=== PATIENT | male | born 2000 ===

== ENCOUNTER 2021-06-09 11:48 | Emergency (ER) | payer BC, MEDICAID, SELFPAY ==
--- NOTE | ~2021-06-09 | XR_ITS ---
EXAMINATION: XR ANKLE, LEFT CLINICAL INFORMATION: Ankle/foot injury COMPARISON: None TECHNIQUE: AP, lateral, and mortise views of the left ankle. FINDINGS: There is a large amount soft tissue swelling seen about the ankle, medially and laterally as well as the dorsum of the midfoot. Ankle mortise appears intact without widening of the medial joint space. There is mild spurring about the inferior most aspect of the lateral malleolus. There is slight irregularity to the dorsal aspect of the talar bone which may be related to avulsion injuries however no definite edematous change within adjacent fat is seen in the some most likely chronic in nature. XR/XR ankle LT min 3V IMPRESSION: Large amount of soft tissue swelling without definite acute fracture appreciated.
[2021-06-09 12:27] VITALS: BP 120/67; PULSE 91; RESP 17; TEMP 36.8; O2SAT 96; BMI 27.7
--- NOTE | 2021-06-09 13:50 | ED.LOWEXIN ---
HPI - Extremity Injury (Lower) General Chief Complaint: Extremity Injury, Lower Stated Complaint: ankle inj Time Seen by Provider: 06/09/21 13:50 Source: patient and family (Mother) Mode of arrival: ambulatory Limitations: no limitations History of Present Illness HPI Narrative: 21-year-old male came in for evaluation of left foot/ankle injury. Patient was playing basketball yesterday was jumping when he landed he twisted his left ankle, complaining of left ankle pain and swelling. Patient declined any other injuries. No LOC or head injury. No neck pain. Related Data Previous Rx's Medication Instructions Recorded ibuprofen 600 mg tablet 600 mg PO Q8H PRN #20 tab 06/09/21 Allergies Allergy/AdvReac Type Severity Reaction Status Date / Time No Known Allergies Allergy Unverified 05/06/20 16:49 [No Known Allergies*] Review of Systems Review of Systems: All other systems are reviewed and are negative Constitutional: Reports as per HPI and Reports no additional constitutional complaints Eyes: Reports as per HPI and Reports no additional eye complaints Reports system reviewed and no additional complaints, except as documented Cardiovascular: Reports as per HPI and Reports no additional cardiovascular complaints Respiratory: Reports as per HPI and Reports no additional respiratory complaints Gastrointestinal: Reports as per HPI and Reports no additional gastrointestinal complaints Genitourinary: Reports no additional female genitourinary complaints Musculoskeletal: Reports no additional musculoskeletal complaints Skin/Breast: Reports system reviewed and no additional complaints, except as docu Psychiatric: Reports no additional psychiatric complaints Endocrine: Reports no additional endocrine complaints Hematologic/Lymphatic: Reports no additional hematologic/lymphatic complaints Allergic/Immunologic: Reports no additional allergic/immunologic complaints Reports system reviewed and no additional complaints, except as documented and Reports Abnormal speech present Physical Exam Vital Signs: Vital Signs: Last Vital Signs Temp 98.3 F 06/09/21 12:27 Pulse 91 06/09/21 12:27 Resp 17 06/09/21 12:27 BP 120/67 06/09/21 12:27 Pulse Ox 96 06/09/21 12:27 Body Mass Index 27.7 Vital signs have been reviewed as appeared to be correct. Blood pressure normal. Heart rate normal. Respiration rate normal. Temperature normal. Oxygen saturation normal. Appearance: Alert. Oriented X3. No acute distress. Head: Normal external exam. Normocephalic. Atraumatic. No Almazan signs noted. No raccoon eyes noted Eyes: PERRLA. EOMI. Conjunctiva and sclera normal. Eyelids normal. ENT: TM's Normal. Pharynx normal. Uvula midline. Moist mucous membranes. No trismus noted. No drooling noted. No muffled voice noted. Neck: Normal inspection. Neck supple. FROM. No adenopathy. Thyroid Normal. No meningeal signs. No neck mass noted. CVS: Normal heart rate and rhythm. Heart sound normal. No murmurs noted. Pulses normal throughout. Respiratory: No respiratory distress. Painless inspiration. Breath sounds normal. No wheezes/rales/rhonchi noted. Chest nontender. No accessory muscle usage noted or decreased air movement noted. Abdomen: Soft and nontender. Bowel sounds normal in all 4 quadrants. No distention noted. No organomegaly noted. No visible injury noted. Back: No CVA tenderness. Full range of motion noted. Skin: Skin warm and dry. Normal skin color. Normal skin turgor. No rashes/lesions/lacerations noted. Extremities: Left ankle diffuse tenderness, swelling in the left ankle and left foot, no deformity, no step-off, unable to bear weight. Neuro: Oriented X 3. Cranial nerve exam: II-XII are grossly intact No motor deficit. No sensory deficit. Reflexes normal. Course Course Course Narrative: Left ankle sprain. Crutches/elevation/NSAIDs/rest. Discharge Plan Discharge Clinical Impression: Ankle sprain and strain Patient Disposition: Home, Self-Care Instructions: Ankle Sprain (ED) Prescriptions: New ibuprofen 600 mg tablet 600 mg PO Q8H PRN (Reason: pain) Qty: 20 RF: 0 Referrals: Physician,Unknown J [Primary Care Provider] - 2 days
[2021-06-09] MEDS: Ibuprofen 600 MG TABLET PO (14:17)
== END 2021-06-09 14:38 | disposition home or self-care (01) ==
LOC: HO.ED 14:40
PROVIDERS: Emergency Provider Emergency Medicine
DX: S93.402A Sprain of unspecified ligament of left ankle, initial encounter (principal); M25.572 Pain in left ankle and joints of left foot; X50.1XXA Overexertion from prolonged static or awkward postures, initial encounter; Y93.39 Activity, other involving climbing, rappelling and jumping off; Y92.310 Basketball court as the place of occurrence of the external cause; Y99.8 Other external cause status; Z79.899 Other long term (current) drug therapy
CPT/HCPCS: 73610; 99283

== ENCOUNTER 2023-09-15 12:37 | Emergency (ER) | payer MEDICAID, SELFPAY ==
[2023-09-15 12:47] VITALS: BP 117/52; PULSE 78; RESP 16; TEMP 37; BMI 32.3
--- NOTE | 2023-09-15 12:47 | ED.GENADULT ---
HPI - General Adult General Chief complaint: Urogenital-Male Stated complaint: something on private area Time Seen by Provider: 09/15/23 13:19 Source: patient and RN notes reviewed Mode of arrival: ambulatory Limitations: no limitations History of Present Illness HPI narrative: This is a 23-year-old male presenting to the emergency department for evaluation of penile lesion. Patient states that he noticed 2 days ago that he had a painless sore on the tip of his penis. He states that he is monogamous and is sexually active with his partner of 2 years. Denies any fevers, chills, rashes, dysuria, hematuria, penile discharge or drainage. Denies history of similar symptoms in the past. Denies any other complaints or concerns this time MD complaint: Penile lesion Onset (ago): day(s) Relieving factors: none Exacerbating factors: none Associated symptoms: denies other symptoms Treatments prior to arrival: none Related Data Previous Rx's Medication Instructions Recorded ibuprofen 600 mg tablet 600 mg PO Q8H PRN pain #20 tabs 06/09/21 Allergies Allergy/AdvReac Type Severity Reaction Status Date / Time No Known Allergies Allergy Verified 09/15/23 12:47 [No Known Allergies*] Review of Systems Review of Systems: Yes all other systems are reviewed and are negative PMFSH Past Medical History Attestation statement: The following information was validated with the patient. Social History Social History Smoked in Last 30 Days: No Use of substances other than those prescribed or required for medical reasons: No Advance Directives: No Advance Directives Information Provided: No Physical Exam ED Vital Signs: Vital Signs - 24 hr 09/15/23 12:47 09/15/23 16:38 Temperature 98.6 F 98 F Pulse Rate 78 64 Respiratory Rate 16 16 Blood Pressure 117/52 L 130/70 Pulse Oximetry 98 Oxygen Delivery Method Room Air Room Air BMI result Body Mass Index 32.3 General: Awake, alert, and oriented X3. No acute distress. HEENT: Normal inspection CVS: Normal heart rate and rhythm. Pulses normal. Respiratory: No respiratory distress Skin: Warm, dry, no rashes noted to exposed skin. Normal skin color. Normal skin turgor. Extremities: Normal to inspection : examination performed with generation mechanic helper (Tech) present at all time. Uncircumcised male with painless 2 mm ulceration noted at the superior aspect of the glands, no drainage or discharge. No surrounding erythema or edema Neuro: Oriented X 3. No motor deficit. No sensory deficit. Course Course Course Narrative: RME:?23 yo male w/ no significant pmhx here for evaluation of penile lesion that he noticed 3 days ago. lesion located at head of penis. states he is sexually active with new partner. Uses condoms. Denies fever, chills, N/V, abd pain, dysuria, hematuria. denies other lesion. no drainage. no pain. PE limited in triage. UA, CT/NG ordered in triage. Full HPI, ROS and PE to be performed by the primary ED provider. Medical Decision Making Medical Decision Making [facility] Narrative: This is a 23-year-old male presenting to the emergency department for evaluation of painless penile lesion x 2 days. On arrival, vital signs within normal limits. Patient is monogamous with his partner of 2 years. Examination with painless lesion noted to the inferior aspect of the glands. Findings concerning for syphilis versus herpes. Given that is painless in nature, syphilis is high on my differential. Had this evaluated by my supervising physician, Dr. Horton, who recommends getting baseline labs, testing for gonorrhea, chlamydia, syphilis and HSV. Advised to get all other STI testing performed at [facility]. Patient understands and agrees with plan. I advised patient that we will call him with any positive results. Dr. Horton recommends deferring antibiotic treatment as unclear what this lesion is. He is aware that he will have to return for injection if this is positive. Patient has no neurologic findings or rashes to suggest secondary or tertiary syphilis at this time. Advised to avoid any sexual encounters until we are sure what this lesion is. Does not appear to be infectious, therefore deferring antibiotic treatment at this time. Patient understands and agrees with plan. Patient stable for discharge Differential Diagnosis Differential Diagnoses: The differential diagnosis associated with the presentation includes Syphilis, herpes simplex, folliculitis, cellulitis Lab Data [facility] Lab Attestation statement: I reviewed the patient's lab results. No leukocytosis, stable H&H, chemistry within normal limits, urine not infectious. Gonorrhea chlamydia negative 09/15/23 16:04 09/15/23 16:04 Labs: Lab Results 09/15/23 09/15/23 Range/Units 13:12 16:04 WBC 6.4 (4.8-10.8) X10*3/uL RBC 4.87 (4.60-5.80) X10*6/uL Hgb 15.3 (14.0-18.0) g/dl Hct 44.7 (42.0-52.0) % MCV 91.8 (80.0-98.0) fL MCH 31.4 (27.0-33.0) pg MCHC 34.2 (31.0-36.0) g/dl RDW 11.3 (11.0-16.0) % Plt Count 180 (160-400) X10*3/uL MPV 11.4 (9.4-12.4) fL Immature Gran % (Auto) 0.3 (0.0-0.4) % Neut % (Auto) 73.3 H (45-73) % Lymph % (Auto) 17.4 L (20-40) % [place]ois % (Auto) 8.3 (2-11) % Eos % (Auto) 0.2 (0-4) % Baso % (Auto) 0.5 (0-2) % Lymph # (Auto) 1.1 L (1.2-4.9) X10*3/uL [place] # (Auto) 0.5 (0.1-1.2) X10*3/uL Eos # (Auto) 0.0 (0.0-0.4) X10*3/uL Baso # (Auto) 0.0 (0.0-0.2) X10*3/uL Abs Immat Gran (auto) 0.02 (0.00-0.03) X10*3/uL Absolute Neuts (auto) 4.7 (2.0-8.3) x10*3/uL Absolute Nucleated RBC 0.000 (0.0-0.012) X10*3/uL Nucleated RBC % (auto) 0.0 (0.0-0.2) /100WBC ESR 1 (0-15) MM/HR Sodium 140 (135-145) mmol/L Potassium 4.1 (3.3-5.1) mmol/L Chloride 105 (96-108) mmol/L Carbon Dioxide 25 (22-29) mmol/L Anion Gap 14 (12-20) BUN 13 (9-16) mg/dL Creatinine 1.25 (0.5-1.4) mg/dL Estim Creat Clear Calc 112.4 Estimated GFR > 60 Random Glucose 89 (60-115) mg/dL Calcium 9.8 (8.4-10.2) mg/dL Total Bilirubin 1.0 (0.0-1.0) mg/dL AST 23 (5-37) U/L ALT 26 (0-40) U/L Alkaline Phosphatase 69 (39-117) U/L C-Reactive Protein 0.27 (< or = 0.50) mg/dL Total Protein 7.7 (6.5-8.0) g/dL Albumin 4.5 (3.5-5.0) g/dL Urine Color Yellow Urine Appearance Clear Urine pH 6.0 (5.0-9.0) Ur Specific [place] 1.025 (1.005-1.025) Urine Protein Negative (Neg-Trace) mg/dL Urine Glucose (UA) Negative (Negative) mg/dL Urine Ketones Negative (Negative) mg/dL Urine Blood Negative (Negative) Urine Nitrite Negative (Negative) Ur Leukocyte Esterase Negative (Negative) T.pallidum Ab (EIA) Reactive A (Nonreactive) Chlam trachomat DNA PCR NOT DETECTED (Not Detect.) HSV Culture & Type Cancelled N.gonorrhoeae DNA (PCR) NOT DETECTED (Not Detect.) Prescription Management I considered prescription management with: Antibiotic Consider treatment with pen G however will defer until results return Discharge Plan Discharge Clinical Impression: Penile lesion Patient Disposition: Home, Self-Care Instructions: Sexually Transmitted Diseases (ED) Additional Instructions: You were seen in the emergency department due to concerns for a penile lesion. We are testing you for herpes and syphilis today. You tested negative for gonorrhea and chlamydia today. Your blood work was reassuring. We sent out your blood for further testing, we will call you with any positive results. We also will call you with any abnormal findings based on your urine collected. Until you are reevaluated by a health care provider please practice safe sex as discussed. Please also have a conversation with your sexual partners. I also advise you to obtain full panel STD testing to test for other STDs including HIV, Hepatitis B & C with your PCP or a local clinic. [facility] can help facilitate these tests. They often times have walk-in hours. If any new or worsening symptoms occur, please return for re-evaluation. Prescriptions: No Action ibuprofen 600 mg tablet 600 mg PO Q8H PRN (Reason: pain) Qty: 20 0RF Discharge Date/Time: 09/15/23 16:35
[2023-09-15 13:21] LABS: Appearance Urine Clear; Color Urine Yellow; Glucose Urine UA Negative (Negative); Leukocyte Esterase Urine Negative (Negative); Nitrite Urine Negative (Negative); Specific Gravity - Urine 1.025 (1.005-1.025); Urine Blood Negative (Negative); Urine Ketones Negative (Negative); Urine Protein Negative (Neg-Trace)
[2023-09-15 15:39] LABS: CT PCR NOT DETECTED (Not Detect.); NG PCR NOT DETECTED (Not Detect.)
[2023-09-15 16:10] LABS: MANUAL DIFF FLAG NO
[2023-09-15 16:13] LABS: Basophils Percent Auto 0.5 % (0-2); Eosinophils Percent Auto 0.2 % (0-4); Hematocrit 44.7 % (42.0-52.0); Hemoglobin 15.3 g/dl (14.0-18.0); Imm Gran Abs Auto 0.02 X10*3/uL (0.00-0.03); Imm Gran Pct Auto 0.3 % (0.0-0.4); Lymphocytes Absolute Auto 1.1 X10*3/uL (1.2-4.9); Lymphocytes Percent Auto 17.4 % (20-40); Mean Corpuscular HGB Conc 34.2 g/dl (31.0-36.0); Mean Corpuscular Hemoglobin 31.4 pg (27.0-33.0); Mean Corpuscular Volume 91.8 fL (80.0-98.0); Mean Platelet Volume 11.4 fL (9.4-12.4); Monocytes Absolute Auto 0.5 X10*3/uL (0.1-1.2); Monocytes Percent Auto 8.3 % (2-11); Neutrophils Absolute Auto 4.7 x10*3/uL (2.0-8.3); Neutrophils Percent Auto 73.3 % (45-73); Platelet Count 180 X10*3/uL (160-400); Red Blood Count 4.87 X10*6/uL (4.60-5.80); Red Cell Distribution Width 11.3 % (11.0-16.0); White Blood Count 6.4 X10*3/uL (4.8-10.8)
[2023-09-15 16:25] LABS: C Reactive Protein 0.27 mg/dL (< or = 0.50)
[2023-09-15 16:27] LABS: Alanine Aminotransferase 26 U/L (0-40); Albumin Level 4.5 g/dL (3.5-5.0); Alkaline Phosphatase 69 U/L (39-117); Anion Gap 14 (12-20); Aspartate Amino Transferase 23 U/L (5-37); Blood Urea Nitrogen 13 mg/dL (9-16); Calcium 9.8 mg/dL (8.4-10.2); Carbon Dioxide 25 mmol/L (22-29); Chloride 105 mmol/L (96-108); Creatinine Clr Calc Pharmacy 112.4; Estimated Glomerular Filt Rate > 60; Glucose Random 89 mg/dL (60-115); Potassium 4.1 mmol/L (3.3-5.1); Sodium 140 mmol/L (135-145); Total Protein 7.7 g/dL (6.5-8.0)
[2023-09-15 16:38] VITALS: BP 130/70; PULSE 64; RESP 16; TEMP 36.6; O2SAT 98
[2023-09-15 16:51] LABS: Erythrocyte Sedimentation Rate 1 MM/HR (0-15)
[2023-09-17 04:28] LABS: Syphilis Screen Reactive (Nonreactive)
[2023-09-20 15:04] LABS: RPR Quantitative Reactive 1:4 (Nonreactive); T.Pallidum Particle Agg Test Reactive (Nonreactive)
== END 2023-09-15 16:35 | disposition home or self-care (01) ==
PROVIDERS: Physician Assistant Medical; Emergency Provider Emergency Medicine
DX: A51.0 Primary genital syphilis (principal); N48.9 Disorder of penis, unspecified
CPT/HCPCS: 0353U; 36415; 80053; 81003; 85025; 85652; 86140; 86592; 86780; 87255; 99284

== ENCOUNTER 2023-09-21 13:44 | Emergency (ER) | payer MEDICAID, SELFPAY ==
[2023-09-21 14:09] VITALS: BP 122/74; PULSE 79; RESP 18; TEMP 36.8; O2SAT 97; BMI 29.9
--- NOTE | 2023-09-21 14:10 | ED.GENADULT ---
HPI - General Adult General Chief complaint: Recheck/Abnormal Lab/Rx Stated complaint: told to come in, tested positive for syphilis Time Seen by Provider: 09/21/23 14:55 Source: patient Mode of arrival: ambulatory Limitations: no limitations History of Present Illness HPI narrative: Patient is a 23 year old assigned male at with no reported medical history presenting to the emergency department today for treatment of syphilis. Patient states that he was told he tested positive for Syphilis and needed treatment. Patient denies any dizziness, lightheadedness, abdominal pain, nausea, vomiting, fever, chills, blurry vision, double vision, loss of vision, chest pain, difficulty breathing, shortness of breath, back pain, night sweats, pain with urination, increased urinary frequency, increased urinary urgency, blood in his urine or stool, syncope or a near syncopal episode, recent trauma or falls, bowel incontinence, bladder incontinence, bowel retention, bladder retention, or any other complaints at this time. Relieving factors: none Exacerbating factors: none Associated symptoms: denies other symptoms Treatments prior to arrival: none Related Data Previous Rx's Medication Instructions Recorded ibuprofen 600 mg tablet 600 mg PO Q8H PRN pain #20 tabs 06/09/21 Allergies Allergy/AdvReac Type Severity Reaction Status Date / Time No Known Allergies Allergy Verified 09/21/23 14:11 [No Known Allergies*] Review of Systems Constitutional: Constitutional: Reports no additional constitutional complaints, Denies chills, Denies fever(s) and Denies night sweats Eyes: Eyes: Reports no additional eye complaints, Denies blurry vision, Denies change in vision, Denies diplopia, Denies eye discharge, Denies loss of vision and Denies eye pain ENT: Denies dizziness Cardiovascular: Cardiovascular: Reports no additional cardiovascular complaints, Denies chest pain, Denies lightheadedness, Denies Loss of Consciousness and Denies dyspnea Respiratory: Respiratory: Reports no additional respiratory complaints and Denies dyspnea Gastrointestinal: Gastrointestinal: Reports no additional gastrointestinal complaints, Denies abdominal pain, Denies melena, Denies hematochezia, Denies change in bowel habits and Denies change in stool character Genitourinary: Genitourinary: Reports no additional male genitourinary complaints, Denies hematuria, Denies oliguria, Denies difficulty urinating, Denies dysuria, Denies urinary frequency, Denies urinary hesitancy, Denies urinary incontinence and Denies urinary urgency Musculoskeletal: Musculoskeletal: Reports no additional musculoskeletal complaints, Denies numbness and Denies tingling Neurologic: Denies dizziness, Denies loss of vision, Denies numbness and Denies tingling Psychiatric: Psychiatric: Reports no additional psychiatric complaints Endocrine: Endocrine: Reports no additional endocrine complaints Hematologic/Lymphatic: Hematologic/Lymphatic: Reports no additional hematologic/lymphatic complaints Allergic/Immunologic: Allergic/Immunologic: Reports no additional allergic/immunologic complaints [facility] Past Medical History Attestation statement: The following information was validated with the patient. Source: old records reviewed and nursing notes reviewed Social History Social History Advance Directives: No Advance Directives Information Provided: No Physical Exam ED Vital Signs: Vital Signs - 24 hr 09/21/23 14:09 Temperature 98.2 F Pulse Rate 79 Respiratory Rate 18 Blood Pressure 122/74 Pulse Oximetry 97 Oxygen Delivery Method Room Air BMI result Body Mass Index 29.9 Const General: cooperative, no acute distress, alert and awake Nutritional Appearance: well nourished Orientation/consciousness: patient oriented x3 Limitations: no limitations HENMT Head: Yes normal to inspection and Yes atraumatic Ears: hearing grossly normal bilaterally and external ears normal General nose exam: Normal external nose present, no nasal discharge noted and no epistaxis Face and sinus: Yes normal facial exam, No abrasion and No laceration Mouth: Normal oral and palatal mucosa present, no drooling and no muffled voice Eyes General: appearance normal, both eyes and all related structures Periorbital: periorbital findings normal Eyelids: Yes eyelids normal Conjunctivae: conjunctivae normal Pupils: Equal, round and reactive pupils present EOM: EOMs intact bilaterally Neck Neck: Yes normal visual inspection, Yes full ROM and Yes no lymphadenopathy Chest Chest palpation & inspection: normal inspection of the chest Resp Effort & Inspection: normal respiratory effort and able to speak in complete sentences GI Inspection: Yes normal to inspection Neuro General: patient oriented x3 and moves all extremities Cranial nerves: Yes Equal, round and reactive pupils present Cognition (Neuro): normal cognition Motor exam (neuro): 5/5 motor strength present throughout Sensory Exam: Normal double simultaneous stimulation for sensation Coordination: [id number] test normal Extrem General: Yes normal to inspection, Yes full ROM and Yes capillary refill normal Psych Appearance: grossly normal Mental Status: mental status grossly normal Affect: normal affect Attitude: cooperative Thought process: Normal thought process present Thought content: Normal thought content present Insight: Good insight present (Psych) Course Course Course Narrative: RME performed by Jessica Cifuentes PA-C. Patient is a 23 year old assigned male at presenting to the emergency department with syphillis and needing treatment. Detailed physical exam and review of systems are deferred to the dealer sales rep. Patient placed back in the waiting room pending room availability. Medications Administered Discontinued Medications Generic Name Dose Route Start Last Admin Trade Name Freozzy PRN Reason Stop Dose Admin Penicillin G Benzathine 2,400,000 unit 09/21/23 14:10 09/21/23 14:55 Penicillin G Benzathine 2,400,000 Unit/4 Ml Syringe IM 09/21/23 14:11 2,400,000 unit ONCE ONE Administration Medical Decision Making Medical Decision Making [facility] Narrative: Patient is a 23 year old assigned male at with no reported medical history presenting to the emergency department today for syphilis treatment. Patient's physical exam was unremarkable. I confirmed the patient tested positive for Syphilis today. I explained my physical exam findings to the patient. I answered all questions asked by the patient. Patient received Pen G. I stressed the importance of the patient taking his medication as prescribed. I stressed the importance of the patient following up with his primary care provider. I stressed the importance of the patient returning to the emergency department immediately if his symptoms were to worsen or if he were to develop any dizziness, shortness of breath, difficulty breathing, chest pain, blurry vision, loss of vision, nausea, vomiting, abdominal pain, fever, chills, back pain, or any other complaints. Patient verbalized agreement and understanding with this treatment plan and discharge. Differential Diagnosis Differential Diagnoses: The differential diagnosis associated with the presentation includes Syphilis Admission/Observation Consideration of admission/observation: Escalation of care including admission/observation considered Patient would have been admitted to the hospital had his clinical presentation warranted hospital admission. Lab Data [facility] Lab Attestation statement: I reviewed the patient's lab results. Patient positive for syphilis as of 09/21/2023. Discharge Plan Discharge Clinical Impression: Acquired syphilis Patient Disposition: Home, Self-Care Instructions: Syphilis (ED) Additional Instructions: Follow up with your primary care provider. Return to the emergency department immediately if your symptoms worsen or if you develop any dizziness, shortness of breath, difficulty breathing, chest pain, blurry vision, loss of vision, nausea, vomiting, abdominal pain, fever, chills, back pain, or any other complaints. Prescriptions: No Action ibuprofen 600 mg tablet 600 mg PO Q8H PRN (Reason: pain) Qty: 20 0RF Referrals: [facility] [place]] (Call to establish and follow up with a primary care provider. If you already have a primary care provider, please follow up with them.) [facility] [facility] [Provider Group] (Call to establish and follow up with a primary care provider. If you already have a primary care provider, please follow up with them.) [facility] [[place] Group] (Call to establish and follow up with a primary care provider. If you already have a primary care provider, please follow up with them.) [facility] (Follow up here for anything sexual health related. ) Stand Alone Forms: Work/School Release Interventions: ED Discharge Assessment Last Done: 09/21/23 15:05 Discharge Date/Time: 09/21/23 15:08 Print Language: German
[2023-09-21] MEDS: Penicillin G Benzathine 2,400,000 UNIT/4 ML SYRINGE 2400000 UNIT IM (14:55)
== END 2023-09-21 15:08 | disposition home or self-care (01) ==
LOC: HO.ED 15:02
PROVIDERS: Emergency Provider Emergency Medicine Emergency Medical Services
DX: A53.9 Syphilis, unspecified (principal)
CPT/HCPCS: 96372; 99282; 99284; J0561

== ENCOUNTER 2023-10-16 20:26 | Emergency (ER) | payer MEDICAID, SELFPAY ==
[2023-10-16 21:20] VITALS: BP 116/77; PULSE 83; RESP 14; TEMP 36.6; O2SAT 97; BMI 29.8
[2023-10-16 23:41] VITALS: BP 126/71; PULSE 68; RESP 20; TEMP 36.8; O2SAT 97
--- NOTE | 2023-10-17 00:24 | ED_ITS ---
HPI - General Adult General Chief complaint: General Medical Stated complaint: STD testing Time Seen by Provider: 10/17/23 00:23 Source: patient Mode of arrival: ambulatory Limitations: no limitations History of Present Illness HPI narrative: 23-year-old male who presents emergency department for STD testing. The patient was seen here in the emergency department on 2023 for a painless penile lesion. Patient was tested for syphilis and the T. Pallidum particle antigen and T. pallidum antibody EIA tests were positive. Patient then return to the emergency department and was treated with penicillin G benzathine 2.4 million units IM. Patient states that several days after receiving the IM penicillin the lesion on his penis resolved. Patient states that he was told to return to the emergency department for retesting and re-evaluation. Patient states he has not been sexually active since he was diagnosed with syphilis. He states that his sexual partner was also treated for syphilis. Patient has not been ill in any way since treatment. Related Data Previous Rx's Medication Instructions Recorded ibuprofen 600 mg tablet 600 mg PO Q8H PRN pain #20 tabs 06/09/21 Allergies Allergy/AdvReac Type Severity Reaction Status Date / Time No Known Allergies Allergy Verified 09/21/23 14:11 [No Known Allergies*] Review of Systems Review of Systems: Yes all other systems are reviewed and are negative [facility] Past Medical History [facility] Narrative: Past medical history: None. Social history: He denies tobacco, alcohol and drug use. Social History Social History Advance Directives: No Advance Directives Information Provided: No Physical Exam ED Vital Signs: Vital Signs - 24 hr 10/16/23 21:20 10/16/23 23:41 Temperature 97.8 F 98.3 F Pulse Rate 83 68 Respiratory Rate 14 20 Blood Pressure 116/77 126/71 Pulse Oximetry 97 97 Oxygen Delivery Method Room Air Room Air BMI result Body Mass Index 29.8 Vital signs were normal Exam: General: Awake, alert in no distress Head: Normocephalic, atraumatic EENT: PERRL, Lids normal, sclera normal, conjunctiva normal, nose normal , ears normal, throat without erythema or exudates Neck: Supple, no adenopathy Lung: breath sounds symmetric, no wheezing, rales or rhonchi Chest: symmetric movement, nontender Heart: regular rate and rhythm, normal S1, S2 no murmurs or rubs Abdomen: soft, non-tender, nondistended, normal bowel sounds Back: no vertebral tenderness, no CVAT Extremities: no deformities, moves all extremities symmetrically Skin: no rashes, no lesion, normal color and warmth Neuro: Awake, alert, oriented, normal speech, moves all extremities symmetrically Psych: Pleasant, cooperative Medical Decision Making Medical Decision Making MDM Narrative: 23-year-old male who presents emergency department for STD testing. The patient was seen here in the emergency department on 2023 for a painless penile lesion, tested positive for syphilis with a RPR titer of 4:1, he was treated with penicillin G benzathine 2.4 million units IM. He has not been sexually active since treatment and he states that his sexual partner was also treated. Vital signs were normal. Physical examination was unremarkable. Differential diagnosis: ?Includes but is not limited to under treated syphilis, HIV disease, hepatitis-C, hepatitis-B Following evaluation was ordered: Syphilis panel, hepatitis B and C screen Course: I did discuss with the patient the repeat syphilis test and hepatitis-B and C screen and the importance of following up with [facility] to get these results. I told the patient it is very important that he make sure that his RPR titer has become negative and if it is not improved he may need repeat penicillin treatment. Patient was also given access to the patient portal but I told him that he should not try to interpret these results and it is important that he follow-up with healthcare provider to determine whether he needs further treatment. Discharge Plan Discharge Clinical Impression: Screening examination for STI Patient Disposition: Home, Self-Care Additional Instructions: On 09/15/2023 your tested for syphilis. There are 3 screening test for syphilis that help us determine if you have active syphilis. TP PA and T. Palindrome ab tests were reaction (positive) which means that you have antibodies against syphilis but does not tell you if your syphilis was active or if you had syphilis in the past. The RPR test was reactive (positive) with a dilution of 1 to 4 (1 :4). This test means that you had active syphilis and with treatment this test should become negative or the titer should significantly decrease. I am rechecking your syphilis screening tests and I am also testing you for HIV disease and hepatitis B and hepatitis C. These tests can be difficult to interpret in it is important that you follow-up with [facility] to discuss these results and to see if you need another shot of penicillin to treat your syphilis or if you need to be treated her HIV or hepatitis-C. Prescriptions: No Action ibuprofen 600 mg tablet 600 mg PO Q8H PRN (Reason: pain) Qty: 20 0RF Interventions: ED Discharge Assessment Last Done: 10/17/23 02:36
[2023-10-17 02:36] VITALS: BP 118/73; PULSE 74; RESP 14; TEMP 37.1; O2SAT 97
[2023-10-17 08:28] LABS: HBS Num1 0.48 mIU/mL (0-7.99); HBc Num1 0.09 S/CO (0.00-0.79); HBsAGNum1 0.48 S/CO (0.00-0.99); HIV AB/AG Nonreactive (Nonreactive); HIV Num 1 0.05 S/CO (0.00-0.99); Hepatitis B Core Antibody Nonreactive (Nonreactive); Hepatitis B Surface Antigen Negative (Negative); ~HepC Num1 0.12 S/CO (0.00-0.79); ~Hepatitis B Surface Antibody NONREACTIVE (Nonreactive); ~Hepatitis C Antibody Nonreactive (Nonreactive)
[2023-10-17 08:47] LABS: Syphilis Screen Reactive (Nonreactive)
[2023-10-20 15:21] LABS: RPR Quantitative Reactive 1:2 (Nonreactive); T.Pallidum Particle Agg Test Reactive (Nonreactive)
== END 2023-10-17 02:37 | disposition home or self-care (01) ==
PROVIDERS: Emergency Provider Emergency Medicine Emergency Medical Services
DX: A53.9 Syphilis, unspecified (principal); L98.9 Disorder of the skin and subcutaneous tissue, unspecified; Z20.2 Contact with and (suspected) exposure to infections with a predominantly sexual mode of transmission; Z79.899 Other long term (current) drug therapy
CPT/HCPCS: 36415; 86592; 86704; 86706; 86780; 86803; 87340; 87389; 99283

== ENCOUNTER 2024-02-02 19:09 | Emergency (ER) | payer MEDICAID, SELFPAY ==
[2024-02-02 19:11] VITALS: PULSE 74; RESP 17; TEMP 36.7; O2SAT 98; BMI 30.3
--- NOTE | 2024-02-02 19:14 | ED.MALEGU ---
HPI - Male Genitourinary General Chief complaint: General Medical Stated complaint: Wants Herpes test Time Seen by Provider: 02/02/24 19:54 Source: patient, RN notes reviewed and old records reviewed Mode of arrival: ambulatory Limitations: no limitations History of Present Illness ED Provider: Srinivasa VALLES Narrative: 23-year-old male presents for evaluation of ?I would like to be tested for herpes. ? Patient has a ?small cyst on the top of my penis. ? He states has been there for 5 days. He was recently tested for multiple STIs but not herpes. He states that he tends to get a cyst in the same area about once per year He states it is not painful and not itchy Related Data Previous Rx's ?Medication ?Instructions ?Recorded ibuprofen 600 mg tablet 600 mg PO Q8H PRN pain #20 tabs 06/09/21 Allergies Allergy/AdvReac Type Severity Reaction Status Date / Time No Known Allergies Allergy Verified 02/02/24 19:14 [No Known Allergies*] Review of Systems Constitutional: Constitutional: Denies body ache(s), Denies chills and Denies fever(s) Genitourinary: Genitourinary: Denies difficulty urinating, Reports genital lesions, Denies genital pain, Denies dysuria, Denies penile discharge and Denies testicular mass PMFSH Social History Social History Advance Directives: No Advance Directives Information Provided: No Do you have a plan to hurt others: No Plan Physical Exam Vital Signs: Vital Signs: Last Vital Signs Temp 98.1 F 02/02/24 20:16 Pulse 74 02/02/24 20:16 Resp 17 02/02/24 20:16 BP 00/00 L 02/02/24 20:16 Pulse Ox 98 02/02/24 20:16 O2 Del Method Room Air 02/02/24 20:16 BMI result Body Mass Index 30.3 Const: General: healthy appearing, comfortable, no acute distress, alert and awake Nutritional Appearance: well nourished Orientation/consciousness: patient oriented x3 HEENT: Head: Yes normocephalic and Yes atraumatic Eyes: Eyelids: Yes eyelids normal Conjunctivae: conjunctivae normal Sclerae: sclerae normal Corneas: corneas normal Pupils: Equal, round and reactive pupils present EOM: EOMs intact bilaterally Neck: Neck: Yes full ROM Resp: Effort & Inspection: normal respiratory effort, able to speak in complete sentences and not labored : Other: Patient has a 1 cm non mobile, raised, firm lesion to the dorsum of the mid shaft of the penis. No active drainage, no open wounds. Skin: General skin exam: elasticity normal Neuro: General: patient oriented x3 Cranial nerves: Yes Equal, round and reactive pupils present and Yes Bilaterally intact EOM present Cognition (Neuro): normal cognition Course Course Course Narrative: This is a Rapid Medical Examination (RME) performed by Mariana Newton PA-C in triage. Full HPI, ROS, assessment and treatment plan per primary provider in the Main ED. 23 yo male presents to the ER for evaluation of a small lesion on his genitals that he wants to make sure isn't herpes. has been present for 5 days. had recent STI testing except for herpes. Plan: genital exam Medical Decision Making Medical Decision Making MDM Narrative: Patient has a small lesion on the shaft of his penis. This area was swabbed for herpes per his request. Differential Diagnosis Differential Diagnoses: The differential diagnosis associated with the presentation includes Genital lesion Chancroid Genital herpes simplex Syphilis Discharge Plan Discharge Clinical Impression: Penile lesion Patient Disposition: Home, Self-Care Instructions: Genital Herpes Simplex (ED) Additional Instructions: You were swabbed for genital herpes We will call you if the result is positive You may also check your Personal Estate Manager portal online Prescriptions: No Action ibuprofen 600 mg tablet 600 mg PO Q8H PRN (Reason: pain) Qty: 20 0RF Interventions: ED Discharge Assessment Last Done: 02/02/24 20:16 Discharge Date/Time: 02/02/24 20:17 Print Language: [place] Citizen
--- OUTSIDE RECORDS SUMMARY | 2024-02-02 19:31 | XMS_ITS | Patient Health Record ---
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 Name Role Phone JORGEBERHANE Unavailable [phone] JOEY KIRKLAND Unavailable [phone] Ann Corcoran Unavailable [phone] Allergies No Known Allergies Results Component Value Reference Range Notes APTIMA COMBO 2 CT/NG, Urine Reviewed date:01/02/2024 02:59:56 PM Interpretation:Negative Performing Lab:[facility], [facility], [place], [address] J Luis Contreras DO Notes/Report: GONORRHEA, AMPLIFIED NEGATIVE NEGATIVE CHLAMYDIA, AMPLIFIED NEGATIVE NEGATIVE DNA Test Results SEX: M : 2000 AGE: 23 [id number] CLINIC ID: [id number] SS: PHYSICIAN: JOEY KIRKLAND [facility] COLLECTED BY: [id number] Specimen Source: Urine Specimen Type: Urine, Isabel PCR Medium Neisseria gonorrhoeae: NEGATIVE Normal Value: Negative Chlamydia trachomatis: NEGATIVE Normal Value: Negative T pallidum Screening [place] -[id number] Reviewed date:12/31/2023 10:01:36 AM Interpretation:RPR negative. Historic tx Performing Lab:[facility], [address], [place], Phone - [phone], Director - David Notes/Report: T pallidum Antibodies Reactive Non Reactive RPR Non Reactive Non Reactive T pallidum Antibody, EIA Positive Negative Interpretation: Positive: Consistent with syphilis infection (past or current). . Equivocal: Low levels of antibody detected but insufficient to conclude syphilis (either past or current). If infection is suspected, retest in one month. . Negative: Unconfirmed EIA. If patient is at risk, repeat testing in one month. HIV Ab/p24 Ag with Reflex-[id number] Reviewed date:12/31/2023 02:15:09 PM Interpretation:Non-reactive Performing Lab:[facility] [place], [address] [place] [address], Phone - [phone], Director - [facility] Notes/Report: HIV Ab/p24 Ag Screen Non Reactive Non Reactive HIV Negative HIV-1/HIV-2 antibodies and HIV-1 p24 antigen were NOT detected. There is no laboratory evidence of HIV infection. HCV Antibody-[id number] Reviewed date:12/31/2023 02:14:58 PM Interpretation:Non-reactive Performing Lab:[facility] [place], [address] [place] [address], Phone - [phone], Director - [facility] Notes/Report: Hep C Virus Ab Non Reactive Non Reactive HCV antibody alone does not differentiate between previously resolved infection and active infection. Equivocal and Reactive HCV antibody results should be followed up with an HCV RNA test to support the diagnosis of active HCV infection. Reason For Referral No Information Social History Sex Assigned At : Social History Observation Description Sex Assigned At Female Problems Problem Type SNOMED Code ICD Code Onset Dates Problem Status W/U Status Risk Notes Problem Counseling (376145109) Counseling, unspecified (Z71.9) Active confirmed Vital Signs Blood pressure diastolic 82 mm Hg 12/27/2023 Height 6'1 in 12/27/2023 Blood pressure systolic 128 mm Hg 12/27/2023 Weight 229 lbs 12/27/2023 BMI 30.21 kg/m2 12/27/2023 Encounters Encounter Location Date Provider Diagnosis [facility] [address] [place], [place] [phone] 09/19/2023 BERHANE PATEL Counseling, unspecified Z71.9 and Balanitis N48.[address] [place], [place] [id number] 11/22/2023 Ann Corcoran Encounter for screening for infections with a predominantly sexual mode of transmission Z11.3 and Counseling, unspecified Z71.9 [facility] [address] [place] [id number] 12/27/2023 JOEY KIRKLAND Encounter for screening for infections with a predominantly sexual mode of transmission Z11.3 ; Counseling, unspecified Z71.9 ; HIV Screening Z11.4 and Other problems related to lifestyle Z72.89 [facility] [address] [place], [place] [phone] 01/03/2024 JOEY KIRKLAND Counseling, unspecified Z71.9 Assessments Encounter Date Diagnosis (ICD Code) Assessment Notes Treat ment Notes Treatment Clinical Notes 09/19/2023 Balanitis (ICD-10 - N48.1) Use clotrimazole cream twice a day for 1-2 weeks. Stop bacitracin. 09/19/2023 Counseling, unspecified (ICD-10 - Z71.9) 11/22/2023 Encounter for screening for infections with a predominantly sexual mode of transmission (ICD-10 - Z11.3) 12/27/2023 Encounter for screening for infections with a predominantly sexual mode of transmission (ICD-10 - Z11.3) Discussed STI risks, screenings that are available through [facility] and safe sex. For Hep C screening today. Clt aware of lab processing times and how to view results on portal and how positive results will be communicated. Clt would like to discuss RPR titer as well. Telehealth appt made for 01/02 to discuss with clinician 01/03/2024 Counseling, unspecified (ICD-10 - Z71.9) Spoke to client about most recent negative results. Reassured clt that syphilis titer was negative which confirms absence of current syphilis infection and that treatment was successful. Clt would like to pickle sorter a physical copy of lab results. 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 Clt had no further questions and was reassured by negative testing 12/27/2023 Counseling, unspecified (ICD-10 - Z71.9) 11/22/2023 Counseling, unspecified (ICD-10 - Z71.9) Discussed syphilis etiology, treatment, transmission, prevention. Advised no longer contagious if falling titer at 3 wks, and event described very low risk. Encouraged retesting 3-6 mos after treatment- pt already scheduled 5/9. No addiitonal questions or concerns. 12/27/2023 HIV Screening (ICD-10 - Z11.4) 12/27/2023 Other problems related to lifestyle (ICD-10 - Z72.89) Plan Of Treatment Next Appt Details Provider Name:RUSSELL ENG , 02/18/2024 11:30:00 AM, [address] [place] [address], [address], [place], [place], [phone], Insurance Providers Payer Name Payer Address Payer Phone Subscriber Number Group Number Insured Name Patient Relationship to Insured Coverage Start Date Coverage End Date [place] [address] [place] [address] [id number] Darío Altamirano Self - patient is the insured Medical (General) History Medical History History ICD Code 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
[2024-02-02 20:16] VITALS: BP 00/00; PULSE 74; RESP 17; TEMP 36.7; O2SAT 98
== END 2024-02-02 20:17 | disposition home or self-care (01) ==
PROVIDERS: Physician Assistant; Emergency Provider Emergency Medicine
DX: N48.89 Other specified disorders of penis (principal)
CPT/HCPCS: 87255; 99283

== ENCOUNTER 2024-02-18 19:48 | Emergency (ER) | payer MEDICAID, SELFPAY ==
[2024-02-18 19:59] VITALS: BP 134/74; PULSE 78; RESP 16; TEMP 36.8; O2SAT 97; BMI 30.3
--- NOTE | 2024-02-18 20:01 | ED.GENADULT ---
HPI - General Adult General Chief complaint: General Medical Stated complaint: personal Time Seen by Provider: 02/18/24 22:32 Source: patient Mode of arrival: ambulatory Limitations: no limitations History of Present Illness ED Provider: DR. Yeung HPI narrative: 23-year-old male who is sexually active with 1 partner known to be healthy, patient declined any risk for STDs. Patient previously was tested for syphilis with pen G. Came in today for evaluation heat rash on the left thigh, patient otherwise declined rash on the penis or discharge from the penis. Patient reported 1 painful rash around the lip that is drying now. Related Data Previous Rx's ?Medication ?Instructions ?Recorded ibuprofen 600 mg tablet 600 mg PO Q8H PRN pain #20 tabs 06/09/21 Allergies Allergy/AdvReac Type Severity Reaction Status Date / Time No Known Allergies Allergy Verified 02/18/24 20:02 [No Known Allergies*] Review of Systems Review of Systems: All other systems are reviewed and are negative Constitutional: Reports as per HPI and Reports no additional constitutional complaints Eyes: Reports as per HPI and Reports no additional eye complaints Reports system reviewed and no additional complaints, except as documented Cardiovascular: Reports as per HPI and Reports no additional cardiovascular complaints Respiratory: Reports as per HPI and Reports no additional respiratory complaints Gastrointestinal: Reports as per HPI and Reports no additional gastrointestinal complaints Genitourinary: Reports no additional female genitourinary complaints Musculoskeletal: Reports no additional musculoskeletal complaints Skin/Breast: Reports system reviewed and no additional complaints, except as docu Psychiatric: Reports no additional psychiatric complaints Endocrine: Reports no additional endocrine complaints Hematologic/Lymphatic: Reports no additional hematologic/lymphatic complaints Allergic/Immunologic: Reports no additional allergic/immunologic complaints Reports system reviewed and no additional complaints, except as documented and Reports Abnormal speech present [facility] Social History Social History Advance Directives: No Advance Directives Information Provided: No Physical Exam ED Vital Signs: Vital Signs - 24 hr 02/18/24 19:59 02/18/24 22:53 Temperature 98.2 F 97.9 F Pulse Rate 78 61 Respiratory Rate 16 16 Blood Pressure 134/74 116/70 Pulse Oximetry 97 100 Oxygen Delivery Method Room Air Room Air BMI result Body Mass Index 30.3 Vital signs have been reviewed and appear to be correct. Blood pressure elevated. Heart rate normal. Respiratory rate normal. Temperature normal. Oxygen saturation normal. Appearance: Alert. Oriented X3. No acute distress. Head: Normal external exam. Normocephalic. Atraumatic. No Almazan signs noted. No raccoon eyes noted Eyes: PERRLA. EOMI. Conjunctiva and sclera normal. Eyelids normal. ENT: TM's Normal. Pharynx normal. Uvula midline. Moist mucous membranes. No trismus noted. No drooling noted. No muffled voice noted. Neck: Normal inspection. Neck supple. FROM. No adenopathy. Thyroid Normal. No meningeal signs. No neck mass noted. CVS: Normal heart rate and rhythm. Heart sound normal. No murmurs noted. Pulses normal throughout. Respiratory: No respiratory distress. Painless inspiration. Breath sounds normal. No wheezes/rales/rhonchi noted. Chest nontender. No accessory muscle usage noted or decreased air movement noted. Abdomen: Soft and nontender. Bowel sounds normal in all 4 quadrants. No distention noted. No organomegaly noted. No visible injury noted. exam: No ulcerative lesion, no urethral discharge. Back: No CVA tenderness. Full range of motion noted. Skin: Skin warm and dry. Normal skin color. Normal skin turgor. No rashes/lesions/lacerations noted. Extremities: No lower extremity edema. Extremities exhibit normal range of motion. Extremities nontender. Neuro: Oriented X 3. Cranial nerve exam: II-XII are grossly intact No motor deficit. No sensory deficit. Reflexes normal. Course Course Course Narrative: RME performed by Jessica Cifuentes PA-C. Patient is a 23 year old assigned male at presenting to the emergency department with a penile rash. Patient states he has a penile rash on the left side of his penis over the last couple of days. Patient states that he thinks it is a heat rash but he would like it checked out. Detailed physical exam and review of systems are deferred to the primary care nurse. Patient placed back in the waiting room pending room availability and results. Reevaluation(s) Reevaluation #1: Concern of STDs. Will test for syphilis, GC, chlamydia, hepatitis, HIV. Time: 22:50 Medical Decision Making Differential Diagnosis Differential Diagnoses: The differential diagnosis associated with the presentation includes (STDs, UTI.) Admission/Observation Consideration of admission/observation: Escalation of care including admission/observation considered Discharge Plan Discharge Clinical Impression: Rash Patient Disposition: Home, Self-Care Instructions: Sexually Transmitted Diseases (ED) Prescriptions: No Action ibuprofen 600 mg tablet 600 mg PO Q8H PRN (Reason: pain) Qty: 20 0RF Print Language: Kiswahili
[2024-02-18 22:53] VITALS: BP 116/70; PULSE 61; RESP 16; TEMP 36.6; O2SAT 100
[2024-02-19 00:52] LABS: Appearance Urine Clear; Color Urine Dark Yellow; Glucose Urine UA Negative (Negative); Leukocyte Esterase Urine Trace (Negative); Nitrite Urine Negative (Negative); PH 5.5 (5.0-9.0); Specific Gravity - Urine >= 1.030 (1.005-1.025); UMIC TRIGGER UACC YES; Urine Blood Negative (Negative); Urine Ketones Trace mg/dL (Negative); Urine Protein Trace mg/dL (Neg-Trace)
[2024-02-19 01:34] LABS: Bacteria Urine None Seen (None Seen); RBC Urine 0-2 /HPF (0-2); Squamous Epithelial Cell Urine 0-2 /HPF (0-2); UACC Culture Trigger YES
[2024-02-19 01:50] VITALS: BP 116/70; PULSE 61; RESP 16; TEMP 36.6; O2SAT 100
[2024-02-19 08:08] LABS: HBS Num1 0.03 mIU/mL (0-7.99); HBc Num1 0.14 S/CO (0.00-0.79); Hepatitis B Core Antibody Nonreactive (Nonreactive); Hepatitis B Surface Antigen Negative (Negative); ~Hepatitis B Surface Antibody NONREACTIVE (Nonreactive)
[2024-02-19 08:12] LABS: HIV AB/AG Nonreactive (Nonreactive); HIV Num 1 0.06 S/CO (0.00-0.99); Hepatitis A Antibody IgM 0.14 Index (0-0.79); Syphilis Screen Reactive (Nonreactive); ~Hepatitis A Antibody IgM Nonreactive (Nonreactive); ~Hepatitis C Antibody Nonreactive (Nonreactive)
[2024-02-19 12:08] LABS: CT PCR NOT DETECTED (Not Detect.); NG PCR NOT DETECTED (Not Detect.)
[2024-02-20 09:33] LABS: Herpes Simplex Type 1 IgG <0.90 index; Herpes Simplex Type 2 IgG <0.90 index
[2024-02-21 12:19] LABS: RPR Quantitative Non-Reactive (Nonreactive); T.Pallidum Particle Agg Test Reactive (Nonreactive)
== END 2024-02-19 01:51 | disposition home or self-care (01) ==
PROVIDERS: Emergency Provider Emergency Medicine
DX: L29.1 Pruritus scroti (principal); Z20.2 Contact with and (suspected) exposure to infections with a predominantly sexual mode of transmission; Z79.899 Other long term (current) drug therapy
CPT/HCPCS: 36415; 81001; 81003; 86592; 86695; 86696; 86704; 86706; 86709; 86780; 86803; 87086; 87340; 87389; 87491; 87591; 99283; 99284